=== PATIENT | female | born 1970 | race Caucasian/White ===

== ENCOUNTER 2022-07-03 00:33 | Day surgery (SDC) | payer OTHER, SELFPAY ==
[2022-06-21 09:06] VITALS: BMI 28.8
--- NOTE | 2022-07-02 20:09 | PM.HPGS ---
History of Present Illness History of Present Illness Consent: Risks, benefits, and alternatives have been discussed and questions answered. Patient agrees to proceed with procedure. Chief complaint: neoplasm screening Narrative: Ella Hinton is a 51 year old female who is referred for colon cancer screening. 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 She fact has already had breast cancer. Review of Systems Review of Systems: All systems reviewed & are unremarkable except as noted in HPI and below PMFSH Social History Social History Smoking status: Never smoker Alcohol intake: never Substance use: never Substance use type: does not use Living arrangements: alone Spiritual care concerns: No Meds Home Medications and Allergies Home Medications Medication Instructions Recorded Confirmed Type atorvastatin 20 mg tablet 20 mg PO DAILY 06/21/22 06/21/22 History eletriptan 40 mg tablet (Relpax) 40 mg PO PRN PRN migranes 06/21/22 06/21/22 History ferrous sulfate 325 mg (65 mg 325 mg PO DAILY 06/21/22 06/21/22 History iron) tablet losartan 50 mg-hydrochlorothiazide 1 tablet PO DAILY 06/21/22 06/21/22 History 12.5 mg tablet omeprazole 20 mg delayed 20 mg PO DAILY 06/21/22 06/21/22 History release,disintegrating tablet sodium,potassium,mag sulfates 17.5 See Rx Instructions .Route 06/21/22 Rx gram-3.13 gram-1.6 gram oral soln .COMPLEX #354 mL (Suprep Bowel Prep Kit) Allergies Allergy/AdvReac Type Severity Reaction Status Date / Time No Known Allergies Allergy Verified 07/03/22 11:56 Exam Resp: Auscultation: clear to auscultation bilaterally Cardio: Rate: regular rate Rhythm: regular rhythm GI: GI Palp: Yes Soft to palpation and No Tenderness to palpation present (GI) Assessment and Plan Assessment and plan (1) Colon cancer screening: Code(s): Z12.11 - Encounter for screening for malignant neoplasm of colon Status: Acute Assessment and Plan: Colonoscopy with possible biopsy or polypectomy or cautery or injection of substances.
[2022-07-03 11:57] VITALS: BP 138/81; PULSE 100; RESP 20; TEMP 36.6; O2SAT 98
--- NOTE | 2022-07-03 12:03 | WPDANESEPPF ---
Anes - Initial Pre Proc Eval Procedure: Operation Date: 07/03/22 13:00 Proposed Procedures p Screening Colonoscopy - Britton Cordova MD Date/Time: 07/03/22 12:03 Surgeon: Britton Cordova MD Pre Op Diagnosis: neoplasm screening Patient Data Age: 51 Gender: F Height: 1.78 m Weight: 90.9 kg Last Vital Signs Temp 97.8 F 07/03/22 11:57 Pulse 100 07/03/22 11:57 Resp 20 07/03/22 11:57 BP 138/81 07/03/22 11:57 Pulse Ox 98 07/03/22 11:57 O2 Del Method Room Air 07/03/22 11:57 Allergies Allergy/AdvReac Type Severity Reaction Status Date / Time No Known Allergies Allergy Verified 07/03/22 11:56 Home Medications Medication Instructions Recorded Confirmed Type atorvastatin 20 mg tablet 20 mg PO DAILY 06/21/22 06/21/22 History eletriptan 40 mg tablet (Relpax) 40 mg PO PRN PRN migranes 06/21/22 06/21/22 History ferrous sulfate 325 mg (65 mg 325 mg PO DAILY 06/21/22 06/21/22 History iron) tablet losartan 50 mg-hydrochlorothiazide 1 tablet PO DAILY 06/21/22 06/21/22 History 12.5 mg tablet omeprazole 20 mg delayed 20 mg PO DAILY 06/21/22 06/21/22 History release,disintegrating tablet sodium,potassium,mag sulfates 17.5 See Rx Instructions .Route 06/21/22 Rx gram-3.13 gram-1.6 gram oral soln .COMPLEX #354 mL (Suprep Bowel Prep Kit) Patient hx anesthesia problems: none Family hx anesthesia problems: none Results Review: All pre-operative results and documents have been reviewed as part of the pre-operative evaluation. ON LICENSE OF [facility] Social History Social History Smoking status: Never smoker Alcohol intake: never Substance use: never Substance use type: does not use Living arrangements: alone Spiritual care concerns: No Anes - Eval Final PreProcedure Day of Procedure 07/03/22 12:03 Patient weight: normal Heart: regular rate and rhythm Lungs: clear to auscultation Airway: Mallampati scale class II Neurological: alert and oriented Last oral intake: >/= 8 hours ASA classification: III Emergent: no Anesthetic plan: proceed Anesthesia type and monitoring: general GIVS and standard monitoring Results Review: All pre-operative results and documents have been reviewed as part of the pre-operative evaluation. Informed Consent: The patient's anesthetic plan and its attendant risks and benefits were discussed with the patient/family/POA. Questions were solicited and answers provided to the satisfaction of the patient/family/POA.
[2022-07-03] MEDS: LACTATED RINGERS 1,000 ML 150 ML IV CONT (12:07)
[2022-07-03 13:08] VITALS: BP 94/50; PULSE 94; RESP 25; O2SAT 98
[2022-07-03 13:18] VITALS: BP 98/58; PULSE 83; RESP 16; O2SAT 97
[2022-07-03 13:28] VITALS: BP 117/78; PULSE 84; RESP 19; O2SAT 99
== END 2022-07-03 13:34 | disposition home or self-care (01) ==
PROVIDERS: PCP Family Medicine; Visit Provider Internal Medicine Gastroenterology
PROC: 0DJD8ZZ Inspection of Lower Intestinal Tract, Via Natural or Artificial Opening Endoscopic (ICD-10-PCS; CPT 45378; principal; 2022-07-03 13:00)
DX: Z12.11 Encounter for screening for malignant neoplasm of colon (principal); K57.30 Diverticulosis of large intestine without perforation or abscess without bleeding; Q99.8 Other specified chromosome abnormalities
CPT/HCPCS: 45378; J2704; J7120

== ENCOUNTER 2022-07-18 15:40 | Outpatient (CLI) | payer OTHER, SELFPAY ==
[2022-07-18 16:01] LABS: Basophils Absolute Auto 0.1 K/mm3 (0.0-0.1); Basophils Percent Auto 0.9 % (0.2-1.2); Eosinophils Absolute Auto 0.1 K/mm3 (0-0.3); Eosinophils Percent Auto 1.4 % (0-4.4); Hemoglobin 10.9 g/dL (12.0-15.0); Immature Granulocyte Absolute 0.03 K/mm3 (0.00-0.031); Immature Granulocyte Percent A 0.4 % (0-0.5); Lymphocytes Absolute Auto 2.02 K/mm3 (0.9-3.2); Lymphocytes Percent Auto 24.9 % (18.3-44.2); Mean Corpuscular HGB Conc 32.1 g/dl (32-36); Mean Corpuscular Hemoglobin 28.8 pg (26-34); Mean Corpuscular Volume 89.9 fl (80-100); Mean Platelet Volume 8.7 fl (7.4-10.4); Monocytes Absolute Auto 0.7 K/mm3 (0.1-0.6); Monocytes Percent Auto 8.1 % (2.6-8.5); Neutrophils Absolute Auto 5.2 K/mm3 (1.3-6.7); Neutrophils Percent Auto 64.3 % (45.5-73.1); Platelet Count Result 446 k/mm3 (150-375); Red Blood Count 3.78 M/mm3 (4.2-5.4); Red Cell Distribution Width 13.2 % (11.5-14.5); White Blood Count 8.1 K/mm3 (4.5-10.0)
[2022-07-18 16:27] LABS: Alanine Aminotransferase 21 U/L (6-35); Albumin Level 4.7 g/dL (3.5-5.1); Alkaline Phosphatase 128 U/L (38-126); Anion Gap 9 mmol/L (8-16); Aspartate Amino Transferase 32 U/L (14-36); Bilirubin,Total 0.4 mg/dL (0.2-1.3); Blood Urea Nitrogen 13 mg/dL (7-17); Calcium 8.7 mg/dL (8.4-10.2); Carbon Dioxide 29 mmol/L (22-30); Chloride 101 mmol/L (98-107); Estimated Glomerular Filt Rate > 60; Glucose 76 mg/dL (65-110); Potassium 3.7 mmol/L (3.4-5.0); Sodium 139 mmol/L (137-145)
[2022-07-18 17:08] LABS: Carcinoembryonic Antigen 7.8 ng/mL (0.0-3.0)
[2022-07-22 13:23] LABS: CA 15-3 17 U/mL (<32)
== END 2022-07-18 15:41 | disposition home or self-care (01) ==
LOC: ANHLAB 15:50
PROVIDERS: PCP Family Medicine; Visit Provider Internal Medicine Hematology & Oncology
DX: C50.911 Malignant neoplasm of unspecified site of right female breast (principal); C50.912 Malignant neoplasm of unspecified site of left female breast; Z17.0 Estrogen receptor positive status [ER+]
CPT/HCPCS: 36415; 80053; 82378; 85025; 86300

== ENCOUNTER 2022-07-24 08:00 | Outpatient (CLI) | payer OTHER, SELFPAY ==
--- NOTE | ~2022-07-24 | CT_ITS ---
EXAMINATION: CT abdomen pelvis w con DATE: 07/24/2022 22:50 INDICATION: Right upper quadrant abdominal pain. TECHNIQUE: Computed tomography (CT) of the abdomen and pelvis was performed with 100 mL Omnipaque 350 intravenous contrast. Automated exposure control and iterative reconstruction technique were employe d. The dose-length product was 787.59 mGy-cm. COMPARISON: None. FINDINGS: The visualized portions of the lung bases demonstrate mild atelectasis. A calcified left cathi ng nodule and calcified left hilar lymph nodes are consistent with old granulomatous disease. No pleu ral effusion. The heart size is normal. No pericardial effusion. There are bilateral breast implants. The liver, gallbladder, pancreas, and adrenal glands are normal. Calcifications in the spleen are co nsistent with old granulomatous disease. The kidneys are normal. There are no dilated loops of bowel. The appendix is normal. There are no pathologically enlarged lymph nodes. There is no free intraperi toneal fluid. There is mild thoracic and lumbar spondylosis. IMPRESSION: 1. No etiology for the patient's symptoms. Reviewed, dictated and finalized at location A.
[2022-07-24 15:14] LABS: Estimated Glomerular Filt Rate > 60
== END 2022-07-24 08:01 | disposition home or self-care (01) ==
LOC: ANHIMG 21:12
PROVIDERS: PCP Family Medicine; Visit Provider Internal Medicine Hematology & Oncology
DX: R10.31 Right lower quadrant pain (principal)
CPT/HCPCS: 74177; Q9967

== ENCOUNTER 2022-11-22 13:13 | Outpatient (CLI) | payer OTHER, SELFPAY ==
[2022-11-22 13:28] LABS: Basophils Absolute Auto 0.1 K/mm3 (0.0-0.1); Basophils Percent Auto 0.9 % (0.2-1.2); Eosinophils Absolute Auto 0.2 K/mm3 (0-0.3); Eosinophils Percent Auto 2.3 % (0-4.4); Hematocrit 35.4 % (37.0-47.0); Hemoglobin 11.5 g/dL (12.0-15.0); Immature Granulocyte Absolute 0.03 K/mm3 (0.00-0.031); Immature Granulocyte Percent A 0.4 % (0-0.5); Lymphocytes Absolute Auto 2.14 K/mm3 (0.9-3.2); Lymphocytes Percent Auto 27.7 % (18.3-44.2); Mean Corpuscular HGB Conc 32.5 g/dl (32-36); Mean Corpuscular Hemoglobin 29.7 pg (26-34); Mean Corpuscular Volume 91.5 fl (80-100); Mean Platelet Volume 8.7 fl (7.4-10.4); Monocytes Absolute Auto 0.4 K/mm3 (0.1-0.6); Monocytes Percent Auto 5.4 % (2.6-8.5); Neutrophils Absolute Auto 4.9 K/mm3 (1.3-6.7); Neutrophils Percent Auto 63.3 % (45.5-73.1); Platelet Count Result 439 k/mm3 (150-375); Red Blood Count 3.87 M/mm3 (4.2-5.4); Red Cell Distribution Width 13.9 % (11.5-14.5); White Blood Count 7.7 K/mm3 (4.5-10.0)
[2022-11-22 16:26] LABS: Iron 48 ug/dL (37-170)
[2022-11-22 16:37] LABS: Percent Iron Saturation 11 % (20-50)
[2022-11-22 16:38] LABS: Alanine Aminotransferase 22 U/L (6-35); Albumin Level 4.7 g/dL (3.5-5.1); Alkaline Phosphatase 118 U/L (38-126); Anion Gap 10 mmol/L (8-16); Aspartate Amino Transferase 29 U/L (14-36); Bilirubin,Total 0.5 mg/dL (0.2-1.3); Blood Urea Nitrogen 12 mg/dL (7-17); Calcium 8.8 mg/dL (8.4-10.2); Carbon Dioxide 25 mmol/L (22-30); Chloride 101 mmol/L (98-107); Estimated Glomerular Filt Rate > 60; Glucose 121 mg/dL (65-110); Potassium 3.5 mmol/L (3.4-5.0); Sodium 136 mmol/L (137-145)
[2022-11-22 17:43] LABS: Folic Acid 7.4 ng/mL (2.76->20)
[2022-11-27 06:57] LABS: CA 15-3 20 U/mL (<32)
== END 2022-11-22 13:14 | disposition home or self-care (01) ==
LOC: ANHLAB 13:15
PROVIDERS: PCP Family Medicine; Visit Provider Internal Medicine Hematology & Oncology
DX: C50.911 Malignant neoplasm of unspecified site of right female breast (principal); Z17.0 Estrogen receptor positive status [ER+]; C50.912 Malignant neoplasm of unspecified site of left female breast; D64.9 Anemia, unspecified
CPT/HCPCS: 36415; 80053; 82607; 82728; 82746; 83540; 83550; 85025; 86300

== ENCOUNTER 2023-01-08 08:25 | Outpatient (CLI) | payer OTHER, SELFPAY ==
[2023-01-08 14:07] LABS: Cholesterol 233 mg/dL (0-200); HDL Direct 53 mg/dL; Triglycerides 298 mg/dL (<150)
[2023-01-08 14:18] LABS: LDL Cholesterol Direct 114 mg/dL
== END 2023-01-08 08:26 | disposition home or self-care (01) ==
LOC: ANHLAB 08:28
PROVIDERS: Internal Medicine Cardiovascular Disease; Visit Provider Internal Medicine Hematology & Oncology
DX: E78.5 Hyperlipidemia, unspecified (principal)
CPT/HCPCS: 36415; 80061

== ENCOUNTER 2023-01-16 09:34 | Outpatient (CLI) | payer OTHER, SELFPAY ==
[2023-01-16 11:38] LABS: Iron 86 ug/dL (37-170)
[2023-01-16 11:47] LABS: Percent Iron Saturation 21 % (20-50)
== END 2023-01-16 09:35 | disposition home or self-care (01) ==
LOC: ANHLAB 09:35
PROVIDERS: Visit Provider Internal Medicine Hematology & Oncology
DX: D50.0 Iron deficiency anemia secondary to blood loss (chronic) (principal); E55.9 Vitamin D deficiency, unspecified; Z85.3 Personal history of malignant neoplasm of breast; R53.83 Other fatigue; D51.9 Vitamin B12 deficiency anemia, unspecified
CPT/HCPCS: 36415; 82728; 83540; 83550

== ENCOUNTER 2023-02-26 08:49 | Outpatient (CLI) | payer OTHER, SELFPAY ==
[2023-02-26 09:04] LABS: Basophils Absolute Auto 0.1 K/mm3 (0.0-0.1); Basophils Percent Auto 0.7 % (0.2-1.2); Eosinophils Absolute Auto 0.1 K/mm3 (0-0.3); Eosinophils Percent Auto 1.3 % (0-4.4); Hematocrit 33.5 % (37.0-47.0); Immature Granulocyte Absolute 0.03 K/mm3 (0.00-0.031); Immature Granulocyte Percent A 0.4 % (0-0.5); Lymphocytes Absolute Auto 1.78 K/mm3 (0.9-3.2); Lymphocytes Percent Auto 21.1 % (18.3-44.2); Mean Corpuscular HGB Conc 32.8 g/dl (32-36); Mean Corpuscular Hemoglobin 29.5 pg (26-34); Mean Corpuscular Volume 89.8 fl (80-100); Mean Platelet Volume 8.5 fl (7.4-10.4); Monocytes Absolute Auto 0.4 K/mm3 (0.1-0.6); Monocytes Percent Auto 5.1 % (2.6-8.5); Neutrophils Percent Auto 71.4 % (45.5-73.1); Platelet Count Result 410 k/mm3 (150-375); Red Blood Count 3.73 M/mm3 (4.2-5.4); Red Cell Distribution Width 13.6 % (11.5-14.5); White Blood Count 8.5 K/mm3 (4.5-10.0)
[2023-02-26 16:42] LABS: Iron 67 ug/dL (37-170)
[2023-02-26 17:04] LABS: Percent Iron Saturation 16 % (20-50)
[2023-02-26 17:49] LABS: Folic Acid 4.6 ng/mL (2.76->20)
== END 2023-02-26 08:50 | disposition home or self-care (01) ==
LOC: ANHLAB 08:51
PROVIDERS: Visit Provider Internal Medicine Hematology & Oncology
DX: D64.9 Anemia, unspecified (principal)
CPT/HCPCS: 36415; 82607; 82728; 82746; 83540; 83550; 85025

== ENCOUNTER 2023-04-07 08:17 | Outpatient (CLI) | payer OTHER, SELFPAY ==
[2023-04-07 10:17] LABS: Cholesterol 211 mg/dL (0-200); HDL Direct 48 mg/dL; Triglycerides 304 mg/dL (<150)
[2023-04-07 10:28] LABS: LDL Cholesterol Direct 113 mg/dL
== END 2023-04-07 08:18 | disposition home or self-care (01) ==
LOC: ANHLAB 08:23
PROVIDERS: PCP Family Medicine; Visit Provider Internal Medicine Cardiovascular Disease
DX: E78.5 Hyperlipidemia, unspecified (principal)
CPT/HCPCS: 36415; 80061

== ENCOUNTER 2023-06-11 09:57 | Outpatient (CLI) | payer OTHER, SELFPAY ==
[2023-06-11 10:23] LABS: Basophils Absolute Auto 0.1 K/mm3 (0.0-0.1); Basophils Percent Auto 0.8 % (0.2-1.2); Eosinophils Absolute Auto 0.1 K/mm3 (0-0.3); Eosinophils Percent Auto 1.5 % (0-4.4); Hematocrit 33.3 % (37.0-47.0); Immature Granulocyte Absolute 0.03 K/mm3 (0.00-0.031); Immature Granulocyte Percent A 0.4 % (0-0.5); Lymphocytes Absolute Auto 1.51 K/mm3 (0.9-3.2); Lymphocytes Percent Auto 20.7 % (18.3-44.2); Mean Corpuscular Hemoglobin 30.3 pg (26-34); Mean Corpuscular Volume 91.7 fl (80-100); Mean Platelet Volume 8.9 fl (7.4-10.4); Monocytes Absolute Auto 0.5 K/mm3 (0.1-0.6); Monocytes Percent Auto 6.5 % (2.6-8.5); Neutrophils Absolute Auto 5.1 K/mm3 (1.3-6.7); Neutrophils Percent Auto 70.1 % (45.5-73.1); Platelet Count Result 370 k/mm3 (150-375); Red Blood Count 3.63 M/mm3 (4.2-5.4); Red Cell Distribution Width 14.6 % (11.5-14.5); White Blood Count 7.3 K/mm3 (4.5-10.0)
[2023-06-11 10:40] LABS: Alanine Aminotransferase 18 U/L (6-35); Albumin Level 4.9 g/dL (3.5-5.1); Alkaline Phosphatase 137 U/L (38-126); Anion Gap 10 mmol/L (4-12); Aspartate Amino Transferase 28 U/L (14-36); Bilirubin,Total 0.5 mg/dL (0.2-1.3); Blood Urea Nitrogen 15 mg/dL (7-17); Calcium 9.6 mg/dL (8.4-10.2); Carbon Dioxide 28 mmol/L (22-30); Chloride 101 mmol/L (98-107); Cholesterol 189 mg/dL (0-200); Creatine Kinase 106 U/L (30-135); Estimated Glomerular Filt Rate > 60; Glucose 109 mg/dL (65-110); HDL Direct 55 mg/dL; Potassium 3.3 mmol/L (3.4-5.0); Sodium 139 mmol/L (137-145); Triglycerides 221 mg/dL (<150)
[2023-06-11 10:44] LABS: Hemoglobin A1C 5.5 % (<5.7)
[2023-06-11 10:52] LABS: LDL Cholesterol Direct 97 mg/dL
[2023-06-11 11:48] LABS: Folic Acid 5.2 ng/mL (2.76->20); Vitamin B12 > 1000.0 pg/mL (239-931)
[2023-06-11 16:42] LABS: Iron 48 ug/dL (37-170)
[2023-06-11 16:59] LABS: Percent Iron Saturation 12 % (20-50)
== END 2023-06-11 09:58 | disposition home or self-care (01) ==
LOC: ANHLAB 10:00
PROVIDERS: PCP Physician Assistant; Visit Provider Internal Medicine Hematology & Oncology
DX: E53.8 Deficiency of other specified B group vitamins (principal); E78.5 Hyperlipidemia, unspecified; D64.9 Anemia, unspecified
CPT/HCPCS: 36415; 80053; 80061; 82550; 82607; 82728; 82746; 83036; 83540; 83550; 84443; 85025

== ENCOUNTER 2023-07-16 09:10 | Outpatient (CLI) | payer OTHER, SELFPAY ==
[2023-07-16 11:41] LABS: Cholesterol 185 mg/dL (0-200); HDL Direct 51 mg/dL; Triglycerides 260 mg/dL (<150)
[2023-07-16 11:52] LABS: LDL Cholesterol Direct 96 mg/dL
== END 2023-07-16 09:11 | disposition home or self-care (01) ==
LOC: ANHLAB 09:13
PROVIDERS: PCP Physician Assistant; Visit Provider Internal Medicine Hematology & Oncology
DX: E78.5 Hyperlipidemia, unspecified (principal)
CPT/HCPCS: 36415; 80061

== ENCOUNTER 2023-08-25 10:51 | Outpatient (CLI) | payer OTHER, SELFPAY ==
[2023-08-25 11:05] LABS: Basophils Absolute Auto 0.1 K/mm3 (0.0-0.1); Basophils Percent Auto 0.9 % (0.2-1.2); Eosinophils Absolute Auto 0.1 K/mm3 (0-0.3); Eosinophils Percent Auto 1.1 % (0-4.4); Hematocrit 34.2 % (37.0-47.0); Immature Granulocyte Absolute 0.02 K/mm3 (0.00-0.031); Immature Granulocyte Percent A 0.3 % (0-0.5); Lymphocytes Absolute Auto 1.82 K/mm3 (0.9-3.2); Mean Corpuscular HGB Conc 32.2 g/dl (32-36); Mean Corpuscular Hemoglobin 29.9 pg (26-34); Mean Corpuscular Volume 92.9 fl (80-100); Mean Platelet Volume 8.4 fl (7.4-10.4); Monocytes Absolute Auto 0.4 K/mm3 (0.1-0.6); Monocytes Percent Auto 4.7 % (2.6-8.5); Neutrophils Absolute Auto 5.6 K/mm3 (1.3-6.7); Platelet Count Result 395 k/mm3 (150-375); Red Blood Count 3.68 M/mm3 (4.2-5.4); Red Cell Distribution Width 13.1 % (11.5-14.5); White Blood Count 7.9 K/mm3 (4.5-10.0)
[2023-08-25 12:14] LABS: Alanine Aminotransferase 22 U/L (6-35); Albumin Level 4.9 g/dL (3.5-5.1); Alkaline Phosphatase 134 U/L (38-126); Anion Gap 11 mmol/L (4-12); Aspartate Amino Transferase 30 U/L (14-36); Bilirubin,Total 0.5 mg/dL (0.2-1.3); Blood Urea Nitrogen 14 mg/dL (7-17); Calcium 9.3 mg/dL (8.4-10.2); Carbon Dioxide 30 mmol/L (22-30); Chloride 99 mmol/L (98-107); Estimated Glomerular Filt Rate > 60; Glucose 98 mg/dL (65-110); Potassium 3.9 mmol/L (3.4-5.0); Sodium 140 mmol/L (137-145)
[2023-08-25 13:19] LABS: Folic Acid 6.1 ng/mL (2.76->20)
[2023-08-25 13:39] LABS: Iron 65 ug/dL (37-170)
[2023-08-25 13:53] LABS: Percent Iron Saturation 17 % (20-50)
[2023-08-28 07:19] LABS: CA 15-3 22 U/mL (<32)
== END 2023-08-25 10:52 | disposition home or self-care (01) ==
LOC: ANHLAB 10:53
PROVIDERS: PCP Physician Assistant; Visit Provider Internal Medicine Hematology & Oncology
DX: D64.9 Anemia, unspecified (principal); C50.919 Malignant neoplasm of unspecified site of unspecified female breast; Z15.02 Genetic susceptibility to malignant neoplasm of ovary; Z15.89 Genetic susceptibility to other disease; Z15.09 Genetic susceptibility to other malignant neoplasm
CPT/HCPCS: 36415; 80053; 82607; 82728; 82746; 83540; 83550; 85025; 86300

== ENCOUNTER 2024-09-21 11:05 | Outpatient (CLI) | payer OTHER, SELFPAY ==
[2024-09-21 11:25] LABS: Hematocrit 33.7 % (37.0-47.0); Hemoglobin 10.9 g/dL (12.0-15.0); Immature Granulocyte Percent A 0.4 % (0-0.5); Lymphocytes Absolute Auto 1.87 K/mm3 (0.9-3.2); Mean Corpuscular HGB Conc 32.3 g/dl (32-36); Mean Corpuscular Hemoglobin 29.4 pg (26-34); Mean Corpuscular Volume 90.8 fl (80-100); Nucleated Red Blood Cells Absolute Auto 0.000 K/mm3 (0.0-0.012); Nucleated Red Blood Cells Perc 0.0 % (0.0-0.2); Platelet Count Result 341 k/mm3 (150-375); Red Blood Count 3.71 M/mm3 (4.2-5.4); White Blood Count 6.9 K/mm3 (4.5-10.0)
--- OUTSIDE RECORDS SUMMARY | 2024-09-21 11:58 | XMS_ITS | Encounter Summary ---
Author Organization [facility] Address [address] [place] [address] Phone Care Team Providers Care Lead Slot Technician Name Role Phone Ina Londono MD Primary Care Provider [phone] Alberto Anne Unavailable Camron Dinero MD Unavailable [phone] Doc Dhillon MD Unavailable Reason for Visit * Reason Comments Medication Refill Encounter Details Date Type Department Care Team (Late st Contact Info) Description 10/11/2019 Refill [facility] [address] [address] Camron Dinero MD [address] [place] [address] Medication Refill Social History Tobacco Use Types Packs/Day Years Used Date Smoking Tobacco: Never Smokeless Tobacco: Never Alcohol Use Standard Drinks/Week Comments Yes 0 (1 standard drink = 0.6 oz pur e alcohol) rare PHQ-2 Answer Date Recorded PHQ-2 Score 0 10/23/2018 Comments Unknown Sex and Gender Information Value Date Recorded Sex Assigned at Not on file Legal Sex Female 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 BUS DRIVER/GUIDE Gender Identity Not on file Sexual Orientation Not on file documented as of this encounter Plan of Treatment Not on file documented as of this encounter Visit Diagnoses Not on filedocumented in this encounter Additional Health Concerns Assessment Noted Time PHQ-9 Depression Total Score: 0 07/29/19 20 2:07 PM CDT documented as of this encounter Care Teams Lead Slot Technician Relationship Specialty Start Date End Date Ina Londono MD [address] [place] [address] [place] [address] PCP - General Supervising Architect 04/09/18 Alberto Anne [address] [place] [address] [place] [address] Texture Artist Cardiovascular Disease - Cardiology 04/09/18 Camron Dinero MD [address] [place] [address] [place] [address] Consulting Physician Oncology 05/01/18 Doc Dhillon MD [address] [address] Internal Medicine 05/01/18 documented as of this encounter
--- OUTSIDE RECORDS SUMMARY | 2024-09-21 11:58 | XMS_ITS | Clinical Summary ---
Author Organization [facility] Address [address], [facility] [address] [place] [address] Phone Care Team Providers Care City Controller Name Role Phone Ina Londono MD Primary Care Provider [phone] Alberto Anne Unavailable [phone] Camron Dinero MD Unavailable [phone] Doc Dhillon MD Unavailable Allergies Active Allergy Reactions Criticality Noted Date Comments Silicone Rash 04/09/2018 Adhesive tape-silicones Medications guaiFENesin (MUCINEX) 600 MG TABLET SR 12 HR Take 600 mg by mouth daily as needed. Active naratriptan (AMERGE) 2.5 MG Tablet Take 2.5 mg by mouth once as needed. Take 2.5 mg by mouth at onset of headache, may repeat in 4 hours if needed Active Eletriptan Hydrobromide (RELPAX) 40 MG Tablet Take 40 mg by mouth once as needed. may repeat in 2 hours if necessary Active diphenhydrAMINE (BENADRYL ALLERGY) 25 MG Capsule Take 25 mg by mouth every 6 hours as needed. Active atorvastatin (LIPITOR) 40 MG Tablet Take 40 mg by mouth daily. 6 9 Active metoprolol Succinate (TOPROL-XL) 50 MG TABLET SR 24 HR Take 50 mg by mouth daily. 3 9 Active tamoxifen citrate 20 MG TabletIndications :Malignant neoplasm of overlapping sites of both breasts in female, estrogen receptor positive (HCC),Iron deficiency anemia due to sideropenic dysphagia,Elevate d CEA TAKE 1 TABLET BY MOUTH EVERY DAY 30 Tablet 11 1 Active venlafaxine (EFFEXOR-XR) 75 MG CAPSULE SR 24 HRIndications:Mal ignant neoplasm of overlapping sites of both breasts in female, estrogen receptor positive (HCC),Iron deficiency anemia due to sideropenic dysphagia,Elevate d CEA TAKE 1 CAPSULE BY MOUTH EVERY DAY 90 Capsule 3 2 Active Active Problems Problem Noted Date Diagnosed Date B12 deficiency 10/28/2019 Elevated CEA 07/29/2019 Acute intractable tension-type headache 03/25/19 20 Cough 03/25/2019 Pain of upper abdomen 03/25/2019 Malignant neoplasm of overla pping sites of breast in female, estrogen receptor positive 04/09/2018 Iron deficiency anemia 04/09/2018 Family History Medical History Relation Name Comments Coronary Artery Disease Brother Heart Attack Brother Basal Cell Carcinoma Father Clotting Disorder Father Cancer Maternal Grandmother Skin Cancer Maternal Grandmother Basal Cell Carcinoma Mother Cancer Mother Coronary Artery Disease Mother Cancer Paternal Grandfather Prostate Cancer Paternal Grandfather Leukemia/Lymphoma Paternal Grandmother Cancer Paternal Uncle Lung Cancer Paternal Uncle Relation Name Status Comments Brother Other Father Alive Maternal Grandmother Mother Alive Paternal Grandfather Paternal Grandmother Paternal Uncle Alive Social History Tobacco Use Types Packs/Day Years Used Date Smoking Tobacco: Never Smokeless Tobacco: Never Alcohol Use Standard Drinks/Week Comments Yes 0 (1 standard drink = 0.6 oz pur e alcohol) rare PHQ-2 Answer Date Recorded Total Score - Questions 1-9 0 01/10 Comments Unknown Sex and Gender Information Value Date Recorded Sex Assigned at Not on file Legal Sex Female 11:48 AM THERAPEUTIC RECREATION LEADER Gender Identity Not on file Sexual Orientation Not on file Last Filed Vital Signs Vital Sign Reading Time Taken Comments Blood Pressure 122/80 01/27/2020 12:50 PM THERAPEUTIC RECREATION LEADER Pulse 87 01/27/2020 12:50 PM THERAPEUTIC RECREATION LEADER Temperature 36.6 C (97.8 F) 01/27/2020 12:50 PM THERAPEUTIC RECREATION LEADER Respiratory Rate 20 10/28/2019 1:33 PM CDT Oxygen Saturation 98% 01/27/2020 12:50 PM THERAPEUTIC RECREATION LEADER Inhaled Oxygen Concentration - - Weight 83 kg (183 lb) 01/27/2020 12:50 PM THERAPEUTIC RECREATION LEADER Height 177.8 cm (5' 10) 05/20/2019 2:23 PM CDT Body Mass Index 26.26 05/20/2019 2:23 PM CDT Plan of Treatment Health Maintenance Due Date Last Done Comments Hepatitis C Virus (HCV) Screening 1968 Mammogram 1978 Hepatitis B Immunization (1 of 3 - 19+ 3-dose series) 10/05/1987 Pneumococcal Immunization (50+ years) (1 of 2 - PCV) 10/05/1987 Zoster Immunization (1 of 2) 10/05/1987 Pap Smear 1989 Cervical Cancer Screening (CCS) 1998 HPV/Cotest 1998 Cologuard 2013 Colonoscopy 2013 Colorectal Cancer Screening 2013 Immunochemical Fecal Occult Blood 2013 SARS-COV-2 Immunization (2 - Pfizer risk series) 04/30/2020 04/09/2020 Influenza Immunization (#1) 2024 12/0 05/2019, 04/15/2019, 12/04/2016, Additional history exists Respiratory Syncytial Virus (RSV) Immunization (Adult) (1 - 1-dose 75+ series) 10/05/2043 DTaP/Tdap/Td Immunization Discontinued 2015, 11/03/2015, 11/03/2015 TdaP Immunization Completed 11/03/2015 Human Papillomavirus (HPV) Immunization Aged Out No longer eligible based on patient's age to complete this topic Meningococcal Immunization (ACWY) Aged Out No longer eligible based on patient's age to complete this topic Rotavirus Immunization Aged Out No lo nger eligible based on patient's age to complete this topic Insurance MEDICAID [employer] Care Teams City Controller Relationship Specialty Start Date End Date Ina Londono MD [facility] [place] [address] PCP - General Solid State Tester 04/09/18 Alberto Anne [address] [place] [address] [place] [address] Workers Compensation Defense Attorney Cardiovascular Disease - Cardiology 04/09/18 Camron Dinero MD [address] [place] [address] [place] [address] Consulting Physician Oncology 05/01/18 Doc Dhillon MD [address] [place] [address] Internal Medicine 05/01/18
--- OUTSIDE RECORDS SUMMARY | 2024-09-21 11:58 | XMS_ITS | Encounter Summary ---
Author Organization [facility] Address [address] [place] [address] Phone Care Team Providers Care Cell Technician Name Role Phone Ina Londono MD Primary Care Provider [phone] Alberto Anne Unavailable [phone] Camron Dinero MD Unavailable [phone] Doc Dhillon MD Unavailable Reason for Visit * Reason Comments Medication Refill Encounter Details Date Type Department Care Team (Late st Contact Info) Description 03/16/2022 Refill [facility] [address] [address] Camron Dinero MD [address] [place] [address] Medication Refill Social History Tobacco Use [...] on file Legal Sex Female 11:48 AM TINNER AUTOMATIC Gender Identity Not on file Sexual Orientation Not on file documented as of this encounter Miscellaneous Notes * Telephone Encounter - Camron Dinero MD - 03/18/2022 8:32 AM TINNER AUTOMATIC No appt since 2019 ER AUTOMATIC * Telephone Encounter - Tonya Gonzalez RN - 03/18/2022 7:59 AM TINNER AUTOMATIC Refill request from pharmacy. Please fill if appropriate. ER AUTOMATIC documented in this encounter Plan of Treatment Not on file documented as of this encounter Visit Diagnoses Diagnosis Malignant neoplasm of overlapping sites of both breasts in female, estrogen receptor positive (HCC) Iron deficiency anemia due to sideropenic dysphagia Elevated CEA Elevated carcinoembryonic antigen [CEA] documented in this encounter Additional Health Concerns Assessment Noted Time PHQ-9 Depression Total Score: 0 01/27/20 20 12:50 PM TINNER AUTOMATIC documented as of this encounter Care Teams Cell Technician Relationship Specialty Start Date End Date Ina Londono MD [address] [place] [address] [place] [address] PCP - General Middle Or Intermediate School Principal 04/09/18 Alberto Anne [address] [place] [address] [place] [address] Medical Library Assistant Cardiovascular Disease - Cardiology 04/09/18 Camron Dinero MD [address] [place] [address] [place] [address] Consulting Physician Oncology 05/01/18 Doc Dhillon MD [address] [place] [id number] Internal Medicine 05/01/18 documented as of this encounter
--- OUTSIDE RECORDS SUMMARY | 2024-09-21 11:58 | XMS_ITS ---
Author Organization [facility] Address [address], [facility] [address] [place] [address] Phone Care Team Providers Care Metal Furniture Assembler Name Role Phone Ina Londono MD Primary Care Provider Alberto Anne Unavailable [phone] Camron Dinero MD Unavailable [phone] Doc Dhillon MD Unavailable Active Problems Problem Noted Date Diagnosed Date B12 deficiency 10/28/2019 Elevated CEA 07/29/2019 Acute intractable tension-type headache 03/25/19 20 Cough 03/25/2019 Pain of upper abdomen 03/25/2019 Malignant neoplasm of overla pping sites of breast in female, estrogen receptor positive 04/09/2018 Iron deficiency anemia 04/09/2018 Current Treatment and Therapy Plans No current plan information found. Past Treatment and Therapy Plans
--- OUTSIDE RECORDS SUMMARY | 2024-09-21 11:58 | XMS_ITS | Clinical Summary ---
Author Organization [facility] Address [address] [place] [address] Care Team Providers Care Refrigerating Engineer Head Name Role Phone Katie Boone MD Primary Care Provider [phone] Source Comments [facility],non-owned Affiliates and Associated Physician Practices is amultiple site organization consisting of ambulatory clinics and hospital sitesin [place], [place], [place] and [place]. This disclosure is being madepursuant to the Care Everywhere program and may not contain all information available regarding this patient. Last updated 17.[facility] Medications * Be aware that medications may not be up to date on this document. Alwaysverify current medications with the patient. HYDROcodone-acet aminophen (NORCO) 5-325 MG tablet Take 1 tablet by mouth q6h PRN (Pain). 30 tablet 0 12/27/2015 Active eletriptan (RELPAX) 40 MG tablet 5 11/07/2015 Active Active Problems Problem Noted Date Diagnosed Date Localized swelling, mass and lump, right upper l imb 01/01/2016 Ganglion of hand 12/01/2015 Pain of finger of right hand 12/01/2015 Family History Medical History Relation Name Comments None Known Father Status: Alive Diabetes Mother Status: Alive Cancer Other Skin Heart Disease Other Hypertension Other Relation Name Status Comments Father Mother Other Social History Tobacco Use Types Packs/Day Years Used Date Smoking Tobacco: Never Alcohol Use Standard Drinks/Week Comments No 0 (1 standard drink = 0.6 oz pur e alcohol) Comments Unknown Sex and Gender Information Value Date Recorded Sex Assigned at Not on file Legal Sex Female 5:48 PM CIGARETTE MAKER Gender Identity Not on file Sexual Orientation Not on file Last Filed Vital Signs Vital Sign Reading Time Taken Comments Blood Pressure 132/73 01/15/2016 9:59 AM CIGARETTE MAKER Pulse 94 01/15/2016 9:59 AM CIGARETTE MAKER Temperature 36.1 C (97 F) 01/15/2016 9:59 AM CIGARETTE MAKER Respiratory Rate 16 12/27/2015 1:00 PM CIGARETTE MAKER Oxygen Saturation 98% 01/01/2016 11:38 AM CIGARETTE MAKER Inhaled Oxygen Concentration - - Weight 78.9 kg (174 lb) 01/15/2016 9:59 AM CIGARETTE MAKER Height 177.8 cm (5' 10) 01/15/2016 9:59 AM CIGARETTE MAKER Body Mass Index 24.97 01/15/2016 9:59 AM CIGARETTE MAKER Plan of Treatment Health Maintenance Due Date Last Done Comments COLOGUARD (AGES 45-75) - COL ON CA SCREENING 1968 COLON MONITORING 1968 COLONOSCOPY - COLON CA SCREENING 1968 CT COLONOGRAPHY - COLON CA SCREENING 1968 Colorectal Cancer Screening 1968 FIT - COLON CA SCREENING 1968 FLEX SIG - COLON CA SCREENING 1968 LIPID TESTING 1968 MAMMOGRAM 1968 HIV SCREENING 10/05/1983 HEPATITIS C SCREENING 09/30/1986 DTAP/TDAP/TD VACCINES (1 - Tdap) 10/05/1987 HEPATITIS B VACCINE (1 of 3 - 19+ 3-dose series) 10/05/1987 PNEUMOCOCCAL VACCINE 50+ (1 of 1 - PCV) 2018 ZOSTER VACCINE (1 of 2) 2018 COVID-19 VACCINE (1 - 2023-2 5 season) 2023 DEPRESSION SCREENING 02/11/2024 INFLUENZA VACCINE (#1) 2024 HIB VACCINE Aged Out No longer eligi ble based on patient's age to complete this topic HPV VACCINE Aged Out No longer eligi ble based on patient's age to complete this topic MENINGOCOCCAL (Group B) VACC INE SHARED DECISION-MAKING Aged Out No longer eligibl e based on patient's age to complete this topic MENINGOCOCCAL GROUPS A/C/Y/W VACCINE Aged Out No longer eligible b ased on patient's age to complete this topic Care Teams Refrigerating Engineer Head Relationship Specialty Start Date End Date Katie Boone MD PCP - General 11/02/15
--- OUTSIDE RECORDS SUMMARY | 2024-09-21 11:58 | XMS_ITS | Encounter Summary ---
Author Organization [facility] Address [address] [place] [address] Phone Care Team Providers Care Production Mechanic Name Role Phone Ina Londono MD Primary Care Provider [phone] Alberto Anne Unavailable [phone] Camron Dinero MD Unavailable Doc Dhillon MD Unavailable Encounter Details Date Type Department Care Team (Late st Contact Info) Description 11/18/2019 Telephone [facility] [address] [address] Camron Dinero MD [address] [place] [address] Social History Tobacco Use Types Packs/Day Years Used Date Smoking Tobacco: Never Smokeless Tobacco: Never Alcohol Use Standard Drinks/Week Comments Yes 0 (1 standard drink = 0.6 oz pur e alcohol) rare PHQ-2 Answer Date Recorded PHQ-2 Score 0 10/23/2018 Comments Unknown Sex and Gender Information Value Date Recorded Sex Assigned at Not on file Legal Sex Female 11:48 AM HAND SUTURE WINDER Gender Identity Not on file Sexual Orientation Not on file COVID-19 Exposure Response Date Recorded In the last month, have you been in contact with someone who was confirmed or suspected to have Coronavirus / COVID-19? No / Unsure 11/18/2019 10:39 AM CDT documented as of this encounter Miscellaneous Notes * Telephone Encounter - Marissa Salgado - 11/18/2019 10:39 AM CDT PATIENT SAYS SHE JUST DOES NOT HAVE THE TIME FOR THE APPT TODAY AND JUST WANTED TO GET HER INJ. PT IS NOT SURE BUT THINKS THE INJ MIGHT BE MAKING HER SICK. PT IS GOING TO CALL BACK WHEN SHE HAS MORE TIME AVAILABLE TO MAKE AN APPT. documented in this encounter Plan of Treatment Not on file documented as of this encounter Visit Diagnoses Not on filedocumented in this encounter Additional Health Concerns Assessment Noted Time PHQ-9 Depression Total Score: 0 07/29/19 20 2:07 PM CDT documented as of this encounter Care Teams Production Mechanic Relationship Specialty Start Date End Date Ina Londono MD [address] [place] [address] [place] [address] PCP - General Thai Masseur 04/09/18 Alberto Anne [address] [place] [address] [place] [address] Exceptional Student Education Teacher Cardiovascular Disease - Cardiology 04/09/18 Camron Dinero MD [address] [place] [address] [place] [address] Consulting Physician Oncology 05/01/18 Doc Dhillon MD [address] [place] [address] Internal Medicine 05/01/18 documented as of this encounter
--- OUTSIDE RECORDS SUMMARY | 2024-09-21 11:58 | XMS_ITS | Clinical Summary ---
Author Organization [facility] Jeffrey Mae Address [address] [place] [address] Care Team Providers Care Key Bed Installer Name Role Phone Unavailable Primary Care Provider Unavailabl e Allergies No known active allergies Medications atorvastatin (LIPITOR) 20 mg tablet Take 40 mg by mouth daily. 06/30/19 23 Active losartan-hydro CHLOROthiazide (HYZAAR) 50-12.5 mg tablet Take by mouth. 06/11/19 23 Active Relpax 40 mg Tablet Take 40 mg by mouth one time as needed. Active omeprazole (PriLOSEC) 40 mg Capsule, Delayed Release(E.C.) Take 40 mg by mouth daily. Active cyanocobalamin (VITAMIN B-12) 1,000 mcg/mL Solution Inject 1,000 mcg by intramuscular injection every 30 days. 07/31/19 23 Active metoprolol succinate (TOPROL XL) 25 mg Extended Release 24 hour tablet Take 1 Tablet by mouth daily. 06/30/19 24 Active ezetimibe (ZETIA) 10 mg tablet Take 1 Tablet by mouth daily. 07/14/19 24 Active venlafaxine (EFFEXOR XR) 75 mg Extended Release 24 hour capsule Take 1 Capsule (75 mg) by mouth daily. 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 The patient underwent the [employer] my risk genetic testing for hereditary cancer syndromes due to a personal history of bilateral breast cancer which was diagnosed at age 47. She also had a family history of a maternal cousin with premenopausal breast cancer. There was a paternal family history of metastatic prostate cancer. The patient was found to have a CHEK2 mutation. The patient has CHEK 2 associated cancer risk. The patient was tested in 2018. 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 The patient underwent the [employer] risk genetic testing for hereditary cancer syndromes due to a personal history of bilateral breast cancer which was diagnosed at age 47. She also had a family history of a maternal cousin with premenopausal breast cancer. There was a paternal family history of metastatic prostate cancer. The patient was found to have a CHEK2 mutation. The patient has CHEK 2 associated cancer risk. The patient was tested in 2018. Genetic testing 08/23/2022 Overview (11/16/2022): CHEK2 positive. The patient has CHEK2 Associated Cancer Risk. The patient underwent the [employer] risk genetic testing for hereditary cancer syndromes due to her personal history of premenopausal breast cancer. There was also a maternal family history of premenopausal breast cancer. The patient tested positive for a CHEK2 mutation. The testing the patient underwent included 48 different cancer genes responsible for CHEK2 Associated Cancer Risk, HBOC, Valenzuela syndrome, as well as most other common hereditary cancer syndromes. November 2022. History of breast cancer 08/20/2022 Chronic blood loss anemia 08/20/2022 Vitamin D deficiency 08/20/2022 Fatigue 08/20/2022 Vitamin B12 deficiency anemia 08/20/2022 Encounters Date Type Department Care Team Description 09/13/2024 Orders Only [facility] Oncology and Hematology [facility] [address] [place] [address] Bradly Galindo MD Chronic anemia (Primary Dx) 09/13/2024 Orders Only [facility] Oncology and Hematology [facility] [address] [place] [address] Bradly Galindo MD History of breast cancer (Primary Dx) 09/09/2024 [facility] Oncology and Hematology [facility] [address] [place] [address] Bradly Galindo MD 09/08/2024 [facility] Oncology and Hematology [facility] [address] [place] [address] Bradly Galindo MD 08/25/2024 External Device Data STL ABSTRACTION Provider, Abstract 08/24/2024 External Device Data STL ABSTRACTION Provider, Abstract 08/21/2024 [facility] Oncology and Hematology [facility] [address] [place] [address] Bradly Galindo MD 07/28/2024 External Device Data STL ABSTRACTION Provider, Abstract 07/13/2024 External Device Data STL ABSTRACTION Provider, Abstract 07/01/2024 External Device Data STL ABSTRACTION Provider, Abstract 06/30/2024 External Device Data STL ABSTRACTION Provider, Abstract 06/29/2024 External Device Data STL ABSTRACTION Provider, Abstract from Last 3 Months Family History Medical History Relation Name Comments Heart Disease Brother 1 Heart defect Brother 1 Cancer Father Kidney cancer Diabetes Type 1 Father Heart Disease Father Kidney Cancer Father Breast Cancer Maternal Cousin Heart Disease Maternal Grandfather Cancer Maternal Grandmother Head an d neck cancer Lung Cancer Maternal Uncle 1 Heart Disease Mother Heart Disease Paternal Aunt 1 Heart Disease Paternal Aunt 2 Cancer Paternal Cousin Head and nec k cancer Cancer Paternal Grandfather Metasta tic prostate cancer Heart Disease Paternal Grandmother Heart Disease Paternal Uncle Relation Name Status Comments Brother 1 Brother 2 Alive Father Maternal Aunt 1 Alive Maternal Aunt 2 Alive Maternal Cousin Alive Maternal Grandfather Maternal Grandmother Maternal Uncle 1 Maternal Uncle 2 Maternal Uncle 3 Alive Mother Alive Paternal Aunt 1 Paternal Aunt 2 Paternal Cousin Alive Paternal Grandfather Paternal Grandmother Paternal Uncle Sister 1 Alive Sister 2 Alive Sister 3 Alive Social History Tobacco Use Types Packs/Day Years Used Date Smoking Tobacco: Never Smokeless Tobacco: Never Tobacco Cessation:Counseling Given: Not Answered Alcohol Use Standard Drinks/Week Comments Not Currently 0 (1 standard drink = 0.6 oz pur e alcohol) Comments Unknown Sex and Gender Information Value Date Recorded Sex Assigned at Not on file Legal Sex Female 2:59 PM CDT Gender Identity Not on file Sexual Orientation Not on file Last Filed Vital Signs Vital Sign Reading Time Taken Comments Blood Pressure 104/69 09/02/2023 2:43 PM CDT Pulse 103 09/02/2023 2:43 PM CDT Temperature 36.7 C (98 F) 09/02/2023 2:43 PM CDT Respiratory Rate 14 09/02/2023 2:43 PM CDT Oxygen Saturation 96% 09/02/2023 2:43 PM CDT Inhaled Oxygen Concentration - - Weight 89.3 kg (196 lb 12.8 oz) 09/02/2023 2:43 PM CDT Height - - Body Mass Index - - Plan of Treatment Upcoming Encounters Date Type Department Care Team (Late st Contact Info) Description 09/29/2024 11:15 AM CDT Office Visit [facility] Oncology and Hematology [facility] [address] [facility] [address] [place] [address] Bradly Galindo MD [address] [facility] [address] [place] [address] Health Maintenance Due Date Last Done Comments HEPATITIS B VACCINES (1 of 3 - 19+ 3-dose series) 10/05/1987 HPV/Cotest (21-29) 1989 CERVICAL CANCER SCREENING 1998 HPV/Cotest (30-65) 1998 PAP SMEAR 1998 COLORECTAL SCREENING 2013 Colorectal Cancer Screening 2013 FIT-DNA Q 3 years 2013 FIT/FOBT Q 1 year 2013 Flex Sig/CT Colonography Q 5 years 2013 DTAP/TDAP/TD VACCINES (1 - Tdap) 11/04/2015 11/03/19 16 BREAST CANCER SCREENING 08/14/2018 08/14/2017, 08/14 ZOSTER VACCINE (1 of 2) 2018 Preventative Visit-Managed Medicaid 05/03/202305/01 INFLUENZA VACCINE (#1) 2024 04/15/2019 Insurance MEDICAID MEDICAID
--- OUTSIDE RECORDS SUMMARY | 2024-09-21 11:58 | XMS_ITS | Encounter Summary ---
Author Organization [facility] Address [address] [place] [address] Phone Care Team Providers Care Site Director Name Role Phone Ina Londono MD Primary Care Provider [phone] Alberto Anne Unavailable [phone] Camron Dinero MD Unavailable [phone] Doc Dhillon MD Unavailable Reason for Visit * Reason Comments Medication Refill Encounter Details Date Type Department Care Team (Late st Contact Info) Description 12/28/2019 Refill [facility] [address] [address] Camron Dinero MD [address] [place] [address] Medication Refill Social History Tobacco [...] on file Legal Sex Female 11:48 AM DICE PERSON Gender Identity Not on file Sexual Orientation Not on file COVID-19 Exposure Response Date Recorded In the last month, have you been in contact with someone who was confirmed or suspected to have Coronavirus / COVID-19? No / Unsure 12/23/2019 10:47 AM DICE PERSON documented as of this encounter Miscellaneous Notes * Telephone Encounter - Denys Kearns, RN - 12/28/2019 1:32 PM CST Called pharmacy and script was sent last week. Pharmacy verbalized understanding. PERSON documented in this encounter Plan of Treatment Not on file documented as of this encounter Visit Diagnoses Not on filedocumented in this encounter Additional Health Concerns Assessment Noted Time PHQ-9 Depression Total Score: 0 07/29/19 20 2:07 PM CDT documented as of this encounter Care Teams Site Director Relationship Specialty Start Date End Date Ina Londono MD [facility] [place] [address] PCP - General Fire Chief'S Aide 04/09/18 Alberto Anne [address] [place] [address] [place] [address] Dentist Attendant Cardiovascular Disease - Cardiology 04/09/18 Camron Dinero MD [address] [place] [address] [place] [address] Consulting Physician Oncology 05/01/18 Doc Dhillon MD [address] [place] [address] Internal Medicine 05/01/18 documented as of this encounter
--- OUTSIDE RECORDS SUMMARY | 2024-09-21 11:58 | XMS_ITS | Encounter Summary ---
Author Organization [facility] Address [address] [place] [address] Phone Care Team Providers Care Sheet Metal Technician Name Role Phone Ina Londono MD Primary Care Provider [phone] Alberto Anne Unavailable [phone] Camron Dinero MD Unavailable Doc Dhillon MD Unavailable Encounter Details Date Type Department Care Team (Late st Contact Info) Description 04/27/2020 Telephone [facility] [address] [address] Camron Dinero MD [address] [place] [address] Social History Tobacco Use Types [...] on file Legal Sex Female 11:48 AM INSPECTOR RECEIVING Gender Identity Not on file Sexual Orientation Not on file COVID-19 Exposure Response Date Recorded In the last month, have you been in contact with someone who was confirmed or suspected to have Coronavirus / COVID-19? No / Unsure 04/20/2020 11:22 AM INSPECTOR RECEIVING documented as of this encounter Miscellaneous Notes * Telephone Encounter - Marissa Salgado - 05/10/2020 11:16 AM CDT LEFT MESSAGE FOR PT TO CALL BACK TO GET RESCHEDULED * Telephone Encounter - Marissa Salgado - 04/27/2020 8:56 AM CDT PATIENT CALLED BACK AND CANCELED APPT TODAY SHE WAS NOT FEELING WELL AND VOMITING ALL NIGHT. PT WASUNABLE TO RESCHEDULE ON THE PHONE SHE HAD TO RUN THE BATHROOM. SHE WILL CALL BACK. documented in this encounter Plan of Treatment Not on file documented as of this encounter Visit Diagnoses Not on filedocumented in this encounter Additional Health Concerns Assessment Noted Time PHQ-9 Depression Total Score: 0 01/27/20 20 12:50 PM INSPECTOR RECEIVING documented as of this encounter Care Teams Sheet Metal Technician Relationship Specialty Start Date End Date Ina Londono MD [address] [place] [address] [place] [address] PCP - General Duty Officer 04/09/18 Alberto Anne [address] [place] [address] [place] [address] Deposit Clerk Cardiovascular Disease - Cardiology 04/09/18 Camron Dinero MD [address] [place] [address] [place] [address] Consulting Physician Oncology 05/01/18 Doc Dhillon MD [address] [place] [id number] Internal Medicine 05/01/18 documented as of this encounter
--- OUTSIDE RECORDS SUMMARY | 2024-09-21 11:58 | XMS_ITS | Encounter Summary ---
Author Organization [facility] Address [address] [place] [address] Phone Care Team Providers Care Nutrition Therapist Name Role Phone Ina Londono MD Primary Care Provider [phone] Alberto Anne Unavailable [phone] Camron Dinero MD Unavailable [phone] Doc Dhillon MD Unavailable Reason for Visit * Reason Comments Medication Refill Encounter Details Date Type Department Care Team (Late st Contact Info) Description 03/16/2022 Refill [facility] [address] [place] [address] Aleena Haney, WHITE SOURER, PAINTING MANAGER [address] [place] [address] Medication Refill Social History Tobacco Use Types [...] on file Legal Sex Female 11:48 AM SUPPORT SPECIALIST Gender Identity Not on file Sexual Orientation Not on file documented as of this encounter Miscellaneous Notes * Telephone Encounter - Camron Dinero MD - 03/18/2022 8:33 AM SUPPORT SPECIALIST No appt ORT SPECIALIST * Telephone Encounter - Tonya Gonzalez RN - 03/18/2022 7:58 AM SUPPORT SPECIALIST Refill request from pharmacy. Please fill if appropriate. ORT SPECIALIST documented in this encounter Plan of Treatment [...] Total Score: 0 01/27/20 20 12:50 PM SUPPORT SPECIALIST documented as of this encounter Care Teams Nutrition Therapist Relationship Specialty Start Date End Date Ina Londono MD [address] [place] [address] [place] [address] PCP - General Stock Puller 04/09/18 Alberto Anne [address] [place] [address] [place] [address] Customer Service Rep Cardiovascular Disease - Cardiology 04/09/18 Camron Dinero MD [address] [place] [address] [place] [address] Consulting Physician Oncology 05/01/18 Doc Dhillon MD [address] [place] [address] Internal Medicine 05/01/18 documented as of this encounter
[2024-09-21 13:26] LABS: Alanine Aminotransferase 25 U/L (6-35); Albumin Level 4.6 g/dL (3.5-5.1); Alkaline Phosphatase 127 U/L (38-126); Anion Gap 10 mmol/L (4-12); Aspartate Amino Transferase 47 U/L (14-36); Bilirubin,Total 0.4 mg/dL (0.2-1.3); Blood Urea Nitrogen 20 mg/dL (7-17); Calcium 9.6 mg/dL (8.4-10.2); Carbon Dioxide 27 mmol/L (22-30); Chloride 102 mmol/L (98-107); Estimated Glomerular Filt Rate > 60; Glucose 101 mg/dL (65-110); Potassium 4.5 mmol/L (3.4-5.0); Sodium 139 mmol/L (137-145); Total Protein 8.8 g/dL (6.3-8.2)
[2024-09-21 13:27] LABS: Iron 75 ug/dL (37-170)
[2024-09-21 13:36] LABS: Percent Iron Saturation 18 % (20-50)
[2024-09-21 14:10] LABS: Ferritin 14.80 ng/mL (11.1-264)
[2024-09-21 14:37] LABS: Vitamin B12 233.0 pg/mL (239-931)
== END 2024-09-21 11:06 | disposition home or self-care (01) ==
LOC: ANHLAB 11:07
PROVIDERS: Visit Provider Internal Medicine Hematology & Oncology
DX: D64.9 Anemia, unspecified (principal); Z85.3 Personal history of malignant neoplasm of breast
CPT/HCPCS: 36415; 80053; 82607; 82728; 82746; 83540; 83550; 85025; 86300

== ENCOUNTER 2024-10-12 14:37 | Outpatient (CLI) | payer OTHER, SELFPAY ==
--- OUTSIDE RECORDS SUMMARY | 1998-12-28 03:15 | XMS_ITS | Continuity of Care Document ---
Author Organization [facility] Address [address] [place] [address] Phone Care Team Providers Care Media Reconciliation Specialist Name Role Phone Pilar Aldana Unavailable Unavailable Advance Directives Directive Yes / No Effective Date File Name No Information Encounters Encounter Description Practice Location Reason(s) For Visit Diagnoses Date Provider Providers Copied on Encounter [facility], [id number] [place] [address] [address], [place], [place], [id number], [place] tel:[phone] [facility] No Information [address] Katya Quezada. [address] , [address], [place], [address], [place]. tel:[phone] Family History Family Member Type Diagnosis Age At Onset No Information Payers Payer name Insurance type Covered green party ID Authoriza tion(s) No Information Social History Type Description Quantity Date Captured Comments Sex Female Smoking Status No Information Chief Complaint And Reason For Visit No Information Reason For Referral Reason For Referral No Information History Of Present Illness Encounter Date Complaint History Of Prese nt Illness No Information Functional Status Date Functional Assessmen t No Information Instructions Date Instruction Additional Infor mation No Information Assessments Type Assessment Date No Information Patient Care Teams Name Effective Dates (start - stop) Status Members No Information
--- NOTE | ~2024-10-12 | CT_ITS ---
EXAMINATION: CT chest abdomen pelvis w con DATE: 10/12/2024 15:12 INDICATION: Breast cancer TECHNIQUE: Computed tomography (CT) of the chest, abdomen, and pelvis was performed with 100 mL Omnipaque-350 intravenous contrast. Automated exposure control and iterative reconstruction technique were employed. The dose-length product was 924.89 mGy-cm. COMPARISON: 07/24/2022 FINDINGS: CHEST CT: Calcified left lower lobe nodule and calcified left hilar lymph nodes consistent with old granulomatous disease. There are additional scattered <3 mm para fissural nodules. No pneumonia, pulmonary edema or pleural effusion. Heart size is normal. No pericardial effusion. Thoracic aorta is normal in caliber with no dissection. No pathologically enlarged thoracic lymphadenopathy. Bilateral breast expanders. There several expansile destructive masses or extraosseous soft tissue extension along the posterior to posterolateral right sixth rib consistent with metastatic disease.. Mild thoracic spondylosis. ABDOMEN/PELVIS CT: Liver, gallbladder, pancreas, bilateral adrenal glands and kidneys are normal. Splenic calcification consistent with old granulomatous disease. Mild scattered diverticulosis without adjacent inflammatory stranding to suggest diverticulitis. Small bowel and appendix are normal. Bladder, uterus and bilat eral adnexa are unremarkable. No free intraperitoneal gas or fluid. No pathologically enlarged abdominal or pelvic lymphadenopathy. Ill-defined sclerotic lesion at the anterior intertrochanteric right femur suspicious for metastatic disease. Unchanged small densely sclerotic bone island at L2. New mixed lytic and sclerotic lesions at L3 also consistent with metastatic disease. IMPRESSION: 1. Several bone lesions suspicious for metastatic disease, the most prominent expansile destructive lesions with extraosseous extension along the posterior right sixth rib with additional lesions at L3 and in the intertrochanteric right femur. 2. No acute cardiopulmonary disease or acute intra-abdominal/pelvic process. Reviewed, dictated and finalized at location A. IMPRESSION: 1. Several bone lesions suspicious for metastatic disease, the most prominent e xpansile destructive lesions with extraosseous extension along the posterior ri ght sixth rib with additional lesions at L3 and in the intertrochanteric right femur. 2. No acute cardiopulmonary disease or acute intra-abdominal/pelvic process.
--- OUTSIDE RECORDS SUMMARY | 2024-10-12 14:48 | XMS_ITS | Clinical Summary ---
Author Organization [facility] Address [facility] [place] [address] Care Team Providers Care Administrative Job Titles Name Role Phone Camron Dinero MD Unavailable Ina Markham MD Primary Care Provider [phone] Allergies No known active allergies Medications atorvastatin 40 MG tablet 06/11/2018 Active RELPAX 40 MG tablet TAKE 1 TABLET AT ONSET. REPEAT IN 2HR IF NEEDED. MAX 2TABS IN 24HRS. MAX 3DAYS WEEKLY 5 05/16/2018 Active metoprolol succinate ER 50 MG 24 hr tablet Take 50 mg by mouth daily. 3 05/16/2018 Active naratriptan 2.5 MG tablet TAKE 1 AT ONSET OF HEADACHE AND MAY REPEAT IN 2 HOURS NEEDED. 4 04/30/2018 Active tamoxifen 20 MG tablet Take 20 mg by mouth daily. 3 06/01/2018 Active venlafaxine XR 75 MG 24 hr capsule Take 75 mg by mouth daily. 0 05/28/2018 Active diphenhydrAMINE (BENADRYL ALLERGY) 25 MG capsule Take 25 mg by mouth. Active Active Problems Problem Noted Date Diagnosed Date DCIS (ductal carcinoma in situ) 09/08/2017 Overview (06/12/2018): Onset: 09/08/2017; Impression - [id number] Katie Boone: Invasive DICS GRADE 2 ER +/ IN+ HER 2 1+/neg Bunion, right 07/25/2017 Chronic cough 07/25/2017 Hypermobility syndrome 12/04/2016 Hyperlipidemia 05/28/2015 PMS (premenstrual syndrome) 05/18/2014 Immunizations Immunization Administration Dates Next Due Dtap (Generic) 11/03/2015 Influenza Adult (Generic) 12/04/2016 Family History Medical History Relation Comments Prostate tumors Father prostate tumors Paternal Grandfather Relation Status Comments Father Paternal Grandfather Social History Tobacco Use Types Packs/Day Years Used Date Smoking Tobacco: Never Smokeless Tobacco: Never Alcohol Use Standard Drinks/Week Comments No 0 (1 standard drink = 0.6 oz pur e alcohol) AUDIT-C Answer Date Recorded Frequency of Alcohol Consumption Never 06/12/2018 Average Number of Drinks Not on file 019 Frequency of Binge Drinking Not on file 04/2018 Comments Unknown Sex and Gender Information Value Date Recorded Sex Assigned at Not on file Legal Sex Female 5:05 PM CDT Gender Identity Not on file Sexual Orientation Not on file Last Filed Vital Signs Vital Sign Reading Time Taken Comments Blood Pressure 132/78 08/12/2019 7:30 AM CDT Pulse 93 08/12/2019 4:17 AM CDT Temperature 36 C (96.8 F) 08/12/2019 4:17 AM CDT Respiratory Rate 20 08/12/2019 4:17 AM CDT Oxygen Saturation 99% 08/12/2019 7:30 AM CDT Inhaled Oxygen Concentration - - Weight 81.6 kg (180 lb) 08/12/2019 4:17 AM CDT Height 177.8 cm (5' 10) 08/12/2019 4:17 AM CDT Body Mass Index 25.83 08/12/2019 4:17 AM CDT Plan of Treatment Health Maintenance Due Date Last Done Comments Colorectal Cancer Screening Colonoscopy (10 Years) 1968 Annual Physical 10/05/1971 Hepatitis C 1986 Hepatitis B Vaccines (1 of 3 - 19+ 3-dose series) 10/05/1987 Cervical Cancer Screening Pa p with HPV Testing (Age 30 to 64) Every 5 Years 1998 Cervical Cancer Screening Pa p Smear (Age 30 to 64) Every 3 Years 05/19/2017 05/19/2014 Cervical Cancer Screening with HPV 05/19/2017 Pneumococcal Vaccine: 50+ Ye ars (1 of 1 - PCV) 2018 Zoster Vaccines (1 of 2) 2018 Mammogram Screening 08/15/2019 08/14/2017 COVID-19 Vaccine (2023-2 5 season) 2024 DTaP, Tdap and Td Vaccines ( 2 - Tdap) 11/02/2025 11/03/2015 Meningococcal B Vaccine Aged Out No l onger eligible based on patient's age to complete this topic Meningococcal Vaccine Aged Out No rosa isela godwin eligible based on patient's age to complete this topic RSV Immunizations Under 20 Months Aged Out No longer eligible based on patient's age to complete this topic Procedures Procedure Name Priority Date/Time Associated Diagnosis Comments MG SCREENING MARELY DIGI Routine 08/14/2017 12:00 AM CDT THINPREP IMAGING PAP REFLEX HPV MRNA E6/E7 Routine 05/19/2014 12:00 AM CDT from Last 3 Months or Most Recently Relevant to Health Maintenance Results * MG SCREENING MARELY DIGI (08/14/2017 12:00 AM CDT) Anatomical Region Laterality Modality Breast Bilateral Mammography 08/14/2017 08/14/2017 Narrative 08/18/2017 4:14 PM CDT Birads 0 Procedure Note Md, Generic Conversion, MD - 12/04/2017 Birads 0 us Katie Boone MD MAMMO Final Result * THINPREP IMAGING PAP REFLEX HPV MRNA E6/E7 (05/19/2014 12:00 AM CDT) CLINICAL INFORMATION: SEE NOTE [facility] TO EPIC CONVERSION Comment:Result Comment: Info rmation not provided Clinical Information: SEE NOTE [facility] TO EPIC CONVERSION Comment:Result Comment: Info rmation not provided Date of Last Pap SEE NOTE [facility] TO EPIC CONVERSION Comment:Result Comment: Info rmation not provided Previous Biopsy? SEE NOTE [facility] TO EPIC CONVERSION Comment:Result Comment: Info rmation not provided SOURCE (QST) SEE NOTE [facility] P TO EPIC CONVERSION Comment:Result Comment: Info rmation not provided COMMENT SEE NOTE [facility] T O EPIC CONVERSION Comment: Result Comment: Satisfactory for evaluation. Endocervical/transformation zone component present. Age and/or menstrual status not provided PAP INTERPRETATION/RESUL TS SEE NOTE [facility] TO EPIC CONVERSION Comment:Result Comment: Nega tive for intraepithelial lesion or malignancy. INFECTION: SEE NOTE [facility] TO EPIC CONVERSION Comment: Result Comment: Shift in vaginal shlomo suggestive of bacterial vaginosis. COMMENT: SEE NOTE [facility] T O EPIC CONVERSION Comment: Result Comment: This Pap test has been evaluated with computer assisted technology. TROLLEY CLEANER SEE NOTE [facility] TO EPIC CONVERSION Comment: Result Comment: MLK, CT(ASCP) Test Performed at: [address] [address] SIMONE BAPTISTE MD 05/19/2014 05/19/2014 Narrative [facility] TO EPIC CONVERSION - 05/20/2014 6:04 AM CDT Result Communication: Call patient with results us Katie Boone MD PATHOLOGY/CYTOLOGY ORDERABLE S Final Result [facility] TO EPIC CONVERSION from Last 3 Months or Most Recently Relevant to Health Maintenance Insurance Care Teams Administrative Job Titles Relationship Specialty Start Date End Date Ina Markham MD [address] [place] [address] PCP - General FAMILY PRACTICE 06/12/18 Camron Dinero MD Medical Oncologist INTERNAL MEDICINE 04/29/18
--- OUTSIDE RECORDS SUMMARY | 2024-10-12 14:48 | XMS_ITS | Clinical Summary ---
Author Organization [facility] Address [address], [facility] [address] [place] [address] Phone Care Team Providers Care Toy Electric Train Repairer Name Role Phone Ina Londono MD Primary Care Provider Alberto Anne Unavailable [phone] Camron Dinero MD Unavailable Doc Dhillon MD Unavailable Allergies Active Allergy [...] on file Legal Sex Female 11:48 AM INDUSTRIAL LABORER Gender Identity Not on file Sexual Orientation Not on file Last Filed Vital Signs Vital Sign Reading Time Taken Comments Blood Pressure 122/80 01/27/2020 12:50 PM INDUSTRIAL LABORER Pulse 87 01/27/2020 12:50 PM INDUSTRIAL LABORER Temperature 36.6 C (97.8 F) 01/27/2020 12:50 PM INDUSTRIAL LABORER Respiratory Rate 20 10/28/2019 1:33 PM CDT Oxygen Saturation 98% 01/27/2020 12:50 PM INDUSTRIAL LABORER Inhaled Oxygen Concentration - - Weight 83 kg (183 lb) 01/27/2020 12:50 PM INDUSTRIAL LABORER Height 177.8 cm (5' 10) 05/20/2019 2:23 [...] age to complete this topic Insurance MEDICAID [employer] Care Teams Toy Electric Train Repairer Relationship Specialty Start Date End Date Ina Londono MD [facility] [place] [address] PCP - General Data Transcriber 04/09/18 Alberto Anne [address] [place] [address] [place] [address] Knurling Machine Operator Cardiovascular Disease - Cardiology 04/09/18 Camron Dinero MD [address] [place] [address] [place] [address] Consulting Physician Oncology 05/01/18 Doc Dhillon MD [address] [place] [id number] Internal Medicine 05/01/18
--- OUTSIDE RECORDS SUMMARY | 2024-10-12 14:48 | XMS_ITS | Encounter Summary ---
Author Organization [facility] Address [address] [place] [address] Phone Care Team Providers Care Reviewer Sales Name Role Phone Ina Londono MD Primary Care Provider [phone] Alberto Anne Unavailable [phone] Camron Dinero MD Unavailable [phone] Doc Dhillon MD Unavailable Encounter Details Date Type Department Care Team (Late st Contact Info) Description 04/27/2020 Telephone [facility] [address] [address] Camron Dinero MD [address] [place] [address] Social History Tobacco Use Types [...] on file Legal Sex Female 11:48 AM OPTICAL ENGINEERING TECHNICIAN Gender Identity Not on file Sexual Orientation Not on file COVID-19 Exposure Response Date Recorded In the last month, have you been in contact with someone who was confirmed or suspected to have Coronavirus / COVID-19? No / Unsure 04/20/2020 11:22 AM OPTICAL ENGINEERING TECHNICIAN documented as of this encounter Miscellaneous Notes [...] Total Score: 0 01/27/20 20 12:50 PM OPTICAL ENGINEERING TECHNICIAN documented as of this encounter Care Teams Reviewer Sales Relationship Specialty Start Date End Date Ina Londono MD [address] [place] [address] [place] [address] PCP - General Concrete Bucket Loader 04/09/18 Alberto Anne [address] [place] [address] [place] [address] Service Specialist Cardiovascular Disease - Cardiology 04/09/18 Camron Dinero MD [address] [place] [address] [place] [address] Consulting Physician Oncology 05/01/18 Doc Dhillon MD [address] [place] [address] Internal Medicine 05/01/18 documented as of this encounter
--- OUTSIDE RECORDS SUMMARY | 2024-10-12 14:48 | XMS_ITS | Encounter Summary ---
Author Organization [facility] Address [address] [place] [address] Phone Care Team Providers Care Police Department Secretary Name Role Phone Ina Londono MD Primary Care Provider [phone] Alberto Anne Unavailable [phone] Camron Dinero MD Unavailable [phone] Doc Dhillon MD Unavailable Reason for Visit * Reason Comments Medication Refill Encounter Details Date Type Department Care Team (Late st Contact Info) Description 12/28/2019 Refill [facility] [address] [address] Camron Dinero MD [address] [place] [address] Medication Refill Social History Tobacco [...] on file Legal Sex Female 11:48 AM GUEST REQUEST RUNNER Gender Identity Not on file Sexual Orientation Not on file COVID-19 Exposure Response Date Recorded In the last month, have you been in contact with someone who was confirmed or suspected to have Coronavirus / COVID-19? No / Unsure 12/23/2019 10:47 AM GUEST REQUEST RUNNER documented as of this encounter Miscellaneous Notes * Telephone Encounter - Denys Kearns, RN - 12/28/2019 1:32 PM CST Called pharmacy and script was sent last week. Pharmacy verbalized understanding. T REQUEST RUNNER documented in this encounter Plan of Treatment Not on file documented as of this encounter Visit Diagnoses Not on filedocumented in this encounter Additional Health Concerns Assessment Noted Time PHQ-9 Depression Total Score: 0 07/29/19 20 2:07 PM CDT documented as of this encounter Care Teams Police Department Secretary Relationship Specialty Start Date End Date Ina Londono MD [facility] [place] [address] PCP - General Kennel Keeper 04/09/18 Alberto Anne [address] [place] [address] [place] [address] Animation Producer Cardiovascular Disease - Cardiology 04/09/18 Camron Dinero MD [address] [place] [address] [place] [address] Consulting Physician Oncology 05/01/18 Doc Dhillon MD [address] [place] [address] Internal Medicine 05/01/18 documented as of this encounter
--- OUTSIDE RECORDS SUMMARY | 2024-10-12 14:48 | XMS_ITS | Clinical Summary ---
Author Organization [facility] Address [address] [place] [address] Care Team Providers Care Demonstrator Electric Gas Appliances Name Role Phone Unavailable Primary Care Provider Unavailabl e Allergies Active Allergy Reactions Criticality Noted Date Comments Silicone Rash Low 04/09/2018 Adhesive tape-silicones Medications atorvastatin (LIPITOR) 20 mg tablet Take 40 mg by mouth daily. 06/30/19 23 Active losartan-hydr oCHLOROthiazi de (HYZAAR) 50-12.5 mg tablet Take by mouth. 06/11/19 23 Active Relpax 40 mg Tablet Take 40 mg by mouth one time as needed. Active omeprazole (PriLOSEC) 40 mg Capsule, Delayed Release(E.C.) Take 40 mg by mouth daily. Active cyanocobalami n (VITAMIN B-12) 1,000 mcg/mL Solution Inject 1,000 mcg by intramuscular injection every 30 days. 07/31/19 23 Active metoprolol succinate (TOPROL XL) 25 mg Extended Release 24 hour tablet Take 1 Tablet by mouth daily. 06/30/19 24 Active ezetimibe (ZETIA) 10 mg tablet Take 1 Tablet by mouth daily. 07/14/19 24 Active cyanocobalam- mecobalamin-f olic 1,000-200 mcg Tablet, Rapid Dissolve Take 1,000 mcg by mouth daily. 90 Tablet 2 09/30/19 25 Active venlafaxine (EFFEXOR XR) 75 mg Extended Release 24 hour capsule TAKE 1 CAPSULE BY MOUTH EVERY DAY 90 Capsule 1 10/05/19 25 Active venlafaxine (EFFEXOR XR) 75 mg Extended Release 24 hour capsule Take 1 Capsule (75 mg) by mouth daily. 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 The patient underwent the [employer] risk genetic testing for hereditary cancer syndromes [...] cancer risk. The patient was tested in 2017. 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 The patient underwent the [employer] risk genetic testing for hereditary cancer syndromes [...] Associated Cancer Risk. The patient underwent the [employer] risk genetic testing for hereditary cancer syndromes [...] Encounters Date Type Department Care Team Description 10/06/2024 External Device Data STL ABSTRACTION Provider, Abstract 10/05/2024 External Device Data STL ABSTRACTION Provider, Abstract 10/05/2024 External Device Data STL ABSTRACTION Provider, Abstract 2024 Refill [facility] Oncology and Hematology - [address] [place] [id number] Bradly Galindo MD 10/01/2024 Orders Only [facility] Oncology and Hematology - [address] Bradly Galindo MD CHEK2-related breast cancer (CMS/HCC) (Primary Dx); History of breast cancer 09/29/2024 11:15 AM CDT Office Visit [facility] Oncology and Hematology - [address] [place] [phone] Bradly Galindo MD CHEK2-related breast cancer (CMS/HCC) (Primary Dx) 09/23/2024 Orders Only [facility] Oncology and Hematology - [address] [place] [id number] Bradly Galindo MD 09/22/2024 Orders Only [facility] Oncology and Hematology - [address] [place] [id number] Bradly Galindo MD 09/21/2024 Orders Only [facility] Oncology and Hematology - [address] [place] [id number] Bradly Galindo MD 09/13/2024 Orders Only [facility] Oncology and Hematology - [address] [place] [address] Bradly Galindo MD Chronic anemia (Primary Dx) 09/13/2024 Orders Only [facility] Oncology and Hematology - [address] [place] [id number] Bradly Galindo MD History of breast cancer (Primary Dx) 09/09/2024 [facility] Oncology and Hematology - [address] [place] [address] Bradly Galindo MD 09/08/2024 [facility] Oncology and Hematology [facility] [address] [place] [address] Bradly Galindo MD 08/25/2024 External Device Data STL ABSTRACTION Provider, Abstract 08/24/2024 External Device Data STL ABSTRACTION Provider, Abstract 08/21/2024 [facility] Oncology and Hematology [facility] [address] [place] [address] Bradly Galindo MD 07/28/2024 External Device Data [...] Sign Reading Time Taken Comments Blood Pressure 130/73 09/29/2024 10:57 AM CDT Pulse 85 09/29/2024 10:57 AM CDT Temperature 36.6 C (97.9 F) 09/29/2024 10:57 AM CDT Respiratory Rate 14 09/02/2023 2:43 PM CDT Oxygen Saturation 95% 09/29/2024 10:57 AM CDT Inhaled Oxygen Concentration - - Weight 93 kg (205 lb) 09/29/2024 10:57 AM CDT Height 177.8 cm (5' 10) 09/29/2024 10:57 AM CDT Body Mass Index 29.41 09/29/2024 10:57 AM CDT Plan of Treatment Upcoming Encounters Date Type Department Care Team (Late st Contact Info) Description 10/19/2024 4:00 PM CDT Telephone Check Up [facility] Oncology and Hematology - [place] [address] [place] [address] Noemi Brizuela MD [address] [place] [address] Health Maintenance Due Date Last Done Comments Pre-Diabetes and Diabetes Screening 1968 HEPATITIS B VACCINES (1 of 3 - 19+ 3-dose series) 10/05/1987 HPV/Cotest (21-29) 1989 CERVICAL CANCER SCREENING 1998 HPV/Cotest (30-65) 1998 PAP SMEAR 1998 COLORECTAL SCREENING 2013 Colorectal Cancer Screening 2013 FIT-DNA Q 3 years 2013 FIT/FOBT Q 1 year 2013 Flex Sig/CT Colonography Q 5 years 2013 BREAST CANCER SCREENING 08/14/2018 08/14/2017, 08/14 ZOSTER VACCINE (1 of 2) 2018 INFLUENZA VACCINE (#1) 2024 12/20/2022, 2019 COVID-19 Vaccine (2024- season) 2024 12/20/2022, 04/30/2020, 04/09/2020 DTAP/TDAP/TD VACCINES (2 - T d or Tdap) 11/02/2025 11/03/2015, 11/03/2015 Procedures Procedure Name Priority Date/Time Associated Diagnosis Comments COMPREHENSIVE METABOLIC PANEL Routine 09/21/2024 4:09 PM CDT [facility] CA 15 3 Routine 09/21/2024 12:42 PM CDT COMPREHENSIVE METABOLIC PANEL Routine 09/21/2024 11:46 AM CDT from Last 3 Months Results * COMPREHENSIVE METABOLIC PANEL (09/21/2024 4:09 PM CDT) Only the most recent of2 resultswithin the time period is included. Blood us Bradly Galindo MD CHEMISTRY ORDERABLES Final Resu lt * CHG CA 15 3 (09/21/2024 12:42 PM CDT) us Bradly Galindo MD [facility] - LABORATORY Final Result from Last 3 Months Insurance MEDICAID MEDICAID
--- OUTSIDE RECORDS SUMMARY | 2024-10-12 14:48 | XMS_ITS | Clinical Summary ---
Author Organization [facility] Address [address] [facility] [place] [address] Care Team Providers Care Medical Lab Technologist Name Role Phone Katie Boone MD Primary Care Provider [phone] Source Comments [facility],non-owned Affiliates and Associated Physician Practices is amultiple site organization consisting of ambulatory clinics and hospital sitesin [place], [place], [place] and [place]. This disclosure is being madepursuant to the Care Everywhere program and may not contain all information available regarding this patient. Last updated 17.[facility] Medications * Be aware that medications may [...] on file Legal Sex Female 5:48 PM INSPECTOR PAPER PRODUCTS Gender Identity Not on file Sexual Orientation Not on file Last Filed Vital Signs Vital Sign Reading Time Taken Comments Blood Pressure 132/73 01/15/2016 9:59 AM INSPECTOR PAPER PRODUCTS Pulse 94 01/15/2016 9:59 AM INSPECTOR PAPER PRODUCTS Temperature 36.1 C (97 F) 01/15/2016 9:59 AM INSPECTOR PAPER PRODUCTS Respiratory Rate 16 12/27/2015 1:00 PM INSPECTOR PAPER PRODUCTS Oxygen Saturation 98% 01/01/2016 11:38 AM INSPECTOR PAPER PRODUCTS Inhaled Oxygen Concentration - - Weight 78.9 kg (174 lb) 01/15/2016 9:59 AM INSPECTOR PAPER PRODUCTS Height 177.8 cm (5' 10) 01/15/2016 9:59 AM INSPECTOR PAPER PRODUCTS Body Mass Index 24.97 01/15/2016 9:59 AM INSPECTOR PAPER PRODUCTS Plan of Treatment Health Maintenance Due Date [...] age to complete this topic Care Teams Medical Lab Technologist Relationship Specialty Start Date End Date Katie Boone MD PCP - General 11/02/15
--- OUTSIDE RECORDS SUMMARY | 2024-10-12 14:48 | XMS_ITS | Encounter Summary ---
Author Organization [facility] Address [address] [place] [address] Phone Care Team Providers Care Licensed Prosthetist/Orthotist Name Role Phone Ina Londono MD Primary Care Provider [phone] Alberto Anne Unavailable [phone] Camron Dinero MD Unavailable [phone] Doc Dhillon MD Unavailable Reason for Visit * Reason Comments Medication Refill Encounter Details Date Type Department Care Team (Late st Contact Info) Description 03/16/2022 Refill [facility] [address] [address] Camron Dinero MD [address] [place] [address] Medication Refill Social History Tobacco Use [...] on file Legal Sex Female 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 Please fill if appropriate. RCYCLE SERVICE TECHNICIAN documented in this encounter Plan of Treatment [...] Total Score: 0 01/27/20 20 12:50 PM MOTORCYCLE SERVICE TECHNICIAN documented as of this encounter Care Teams Licensed Prosthetist/Orthotist Relationship Specialty Start Date End Date Ina Londono MD [address] [place] [address] [place] [address] PCP - General Economic Development Manager 04/09/18 Alberto Anne [address] [place] [address] [place] [address] Life Skills Trainer Cardiovascular Disease - Cardiology 04/09/18 Camron Dinero MD [address] [place] [address] [place] [address] Consulting Physician Oncology 05/01/18 Doc Dhillon MD [address] [place] [address] Internal Medicine 05/01/18 documented as of this encounter
--- OUTSIDE RECORDS SUMMARY | 2024-10-12 14:48 | XMS_ITS | Encounter Summary ---
Author Organization [facility] Address [address] [place] [address] Phone Care Team Providers Care Commercial Horticulture Instructor Name Role Phone Ina Londono MD Primary Care Provider [phone] Alberto Anne Unavailable [phone] Camron Dinero MD Unavailable [phone] Doc Dhillon MD Unavailable Encounter Details Date Type Department Care Team (Late st Contact Info) Description 11/18/2019 Telephone [facility] [address] [address] Camron Dinero MD [address] [place] [address] Social History Tobacco Use Types Packs/Day Years Used Date Smoking Tobacco: Never Smokeless Tobacco: Never Alcohol Use Standard Drinks/Week Comments Yes 0 (1 standard drink = 0.6 oz pur e alcohol) rare PHQ-2 Answer Date Recorded PHQ-2 Score 0 10/23/2018 Comments Unknown Sex and Gender Information Value Date Recorded Sex Assigned at Not on file Legal Sex Female 11:48 AM DIRECTOR OF SLOT OPERATIONS Gender Identity Not on file Sexual Orientation [...] documented as of this encounter Care Teams Commercial Horticulture Instructor Relationship Specialty Start Date End Date Ina Londono MD [address] [place] [address] [place] [address] PCP - General Manager Product Design 04/09/18 Alberto Anne [address] [place] [address] [place] [address] Assembler Clip On Sunglasses Cardiovascular Disease - Cardiology 04/09/18 Camron Dinero MD [address] [place] [address] [place] [address] Consulting Physician Oncology 05/01/18 Doc Dhillon MD [address] [place] [address] Internal Medicine 05/01/18 documented as of this encounter
--- OUTSIDE RECORDS SUMMARY | 2024-10-12 14:48 | XMS_ITS ---
Author Organization [facility] Address [address], [facility] [address] [place] [address] Phone Care Team Providers Care Short Order Fry Cook Name Role Phone Ina Londono MD Primary Care Provider Alberto Anne Unavailable [phone] Camron Dinero MD Unavailable [phone] Doc Dhillon MD Unavailable Active Problems Problem [...]
--- OUTSIDE RECORDS SUMMARY | 2024-10-12 14:48 | XMS_ITS | Encounter Summary ---
Author Organization [facility] Address [address] [place] [address] Phone Care Team Providers Care Strap Machine Operator Name Role Phone Ina Londono MD Primary Care Provider [phone] Alberto Anne Unavailable [phone] Camron Dinero MD Unavailable [phone] Doc Dhillon MD Unavailable Reason for Visit * Reason Comments Medication Refill Encounter Details Date Type Department Care Team (Late st Contact Info) Description 03/16/2022 Refill [facility] [address] [place] [address] Aleena Haney, BREWER HELPER, CENTRAL STERILE TECH [address] [place] [address] Medication Refill Social History Tobacco [...] on file Legal Sex Female 11:48 AM BEATER ENGINEER Gender Identity Not on file Sexual Orientation Not on file documented as of this encounter Miscellaneous Notes * Telephone Encounter - Camron Dinero MD - 03/18/2022 8:33 AM BEATER ENGINEER No appt ER ENGINEER * Telephone Encounter - Tonya Gonzalez RN - 03/18/2022 7:58 AM BEATER ENGINEER Refill request from pharmacy. Please fill if appropriate. ER ENGINEER documented in this encounter Plan of Treatment [...] Total Score: 0 01/27/20 20 12:50 PM BEATER ENGINEER documented as of this encounter Care Teams Strap Machine Operator Relationship Specialty Start Date End Date Ina Londono MD [address] [place] [address] [place] [address] PCP - General Box Toe Maker 04/09/18 Alberto Anne [address] [place] [address] [place] [address] Protective Signal Installer Cardiovascular Disease - Cardiology 04/09/18 Camron Dinero MD [address] [place] [address] [place] [address] Consulting Physician Oncology 05/01/18 Doc Dhillon MD [address] [place] [address] Internal Medicine 05/01/18 documented as of this encounter
== END 2024-10-12 14:38 | disposition home or self-care (01) ==
PROVIDERS: Visit Provider Internal Medicine Hematology & Oncology
DX: C50.919 Malignant neoplasm of unspecified site of unspecified female breast (principal); M89.8X8 Other specified disorders of bone, other site; M89.9 Disorder of bone, unspecified; Z15.02 Genetic susceptibility to malignant neoplasm of ovary; Z15.89 Genetic susceptibility to other disease; Z15.09 Genetic susceptibility to other malignant neoplasm
CPT/HCPCS: 71260; 74177; Q9967